=== PATIENT | female | born 1985 | race Caucasian/White ===

== ENCOUNTER 2018-03-29 12:32 | Emergency (ER) | payer MEDICAID, OTHER | END 2018-03-29 14:28 | disposition home or self-care (01) | LOC: FTE 12:32 | DX: Z76.0 Encounter for issue of repeat prescription (principal) | CPT/HCPCS: 99281; Z7502 ==

== ENCOUNTER 2018-07-05 11:09 | Emergency (ER) | payer OTHER, MEDICAID | END 2018-07-05 12:55 | disposition home or self-care (01) | LOC: FTE 12:55 | DX: S92.511A Displaced fracture of proximal phalanx of right lesser toe(s), initial encounter for closed fracture (principal); F43.10 Post-traumatic stress disorder, unspecified; X58.XXXA Exposure to other specified factors, initial encounter; Y92.9 Unspecified place or not applicable; Z76.0 Encounter for issue of repeat prescription | CPT/HCPCS: 73630; 99283-25 ==